=== PATIENT | male | born 1955 | race Caucasian/White ===

== ENCOUNTER 2017-03-15 10:00 | Emergency (ER) | payer MEDICARE, MEDICAID ==
--- NOTE | 2017-03-16 08:46 | ER ---
ADMIT: 03/15/2017 RM/LOC: ER [facility] MR#: [id number] [address] [id number] ELIJAH ALEXANDER Ce [address] [address] Emergency Room Report SEX: M AGE: 61 : 1955 DATE: 03/15/2017 This 61-year-old gentleman comes to the Emergency Department with several days of right knee pain. Denies any trauma. He used a pen and placed an X over his knee. When I asked why he did that, he did not know. He did not recall doing it, but then he said he just did it because he thought about it. He is a very peculiar gentleman and peculiar presentation. There is some erythema corresponding to the area of tenderness over the knee, however, he does not know if that has been there chronically because he always crosses his legs and he thinks that is what the erythema is from, but he is not sure. X-rays revealed small effusion, an Rodri wrap was placed. I did start him on Keflex, I do not think this is infectious etiology, however, he is extremely poor historian and I will cover him in any event, asking him to follow up with his primary doctor on Saturday. Randall De La Rosa MD/ mundo JOB #: [id number] CC: Randall De La Rosa MD, Attending Physician
== END 2017-03-15 11:58 | disposition home or self-care (01) ==
LOC: ER 10:00
DX: M25.561 Pain in right knee (principal); F17.210 Nicotine dependence, cigarettes, uncomplicated